=== PATIENT | female | born 1955 | race Caucasian/White ===

== ENCOUNTER → 2017-07-15 | Outpatient (CLI) | payer BC ==
[~2017-07-15] MED LIST: BENADRYL; CETI10CA PO; CITA40TA12 PO; IBUP200C8 PO
== END | disposition home or self-care (01) ==
LOC: STAR 13:21 → MERGE 13:30
PROVIDERS: ATTEND Surgery
DX: Z01.818 Encounter for other preprocedural examination (principal); R94.31 Abnormal electrocardiogram [ECG] [EKG]
CPT/HCPCS: 93005

== ENCOUNTER 2017-07-24 06:59 | Day surgery (SDC) | payer BC ==
[~2017-07-24] VITALS: Ht 157.5 cm; Wt 99.4 kg
[2017-07-24] MEDS ORDERED: INDOCYANINE GREEN 25 MG VIAL ONE ×2 (07:13→07:14)
[2017-07-24] MEDS ORDERED: EPINEPHRINE 1 MG/ML, 1ML ONE (07:13)
[2017-07-24] MEDS ORDERED: BUPIVACAINE/PF 0.5% ONE (07:13)
[2017-07-24] MEDS ORDERED: SUGAMMADEX 200 MG/2 ML IVPush ONE (07:20)
[2017-07-24 07:48] VITALS: BP 121/79
[2017-07-24 07:51] VITALS: BP 121/79
[2017-07-24] MEDS ORDERED: LACTATED RINGERS 1,000 ML IV SCH (07:56)
[2017-07-24] MEDS ORDERED: LIDOCAINE-MPF 1%, 2ML INFIL ONE (08:00)
[2017-07-24] MEDS ORDERED: LIDOCAINE-MPF 1%, 2ML ONE (08:02)
[2017-07-24] MEDS ORDERED: INDOCYANINE GREEN 25 MG VIAL IV ONE (08:30)
[2017-07-24] MEDS ORDERED: ONDANSETRON 2MG/ML, 2ML ONE ×2 (08:40→11:36)
[2017-07-24] MEDS ORDERED: PROPOFOL 10 MG/ML, 20ML ONE ×2 (08:40)
[2017-07-24] MEDS ORDERED: SUCCINYLCHOLINE 20 MG/ML, 10ML ONE (08:40)
[2017-07-24] MEDS ORDERED: CEFAZOLIN 1,000 MG ONE (08:40)
[2017-07-24] MEDS ORDERED: DEXAMETHASONE 4 MG/ML, 1ML ONE ×2 (08:40)
[2017-07-24] MEDS ORDERED: NEOSTIGMINE 1 MG/ML, 10ML ONE (08:40)
[2017-07-24] MEDS ORDERED: GLYCOPYRROLATE 0.2MG/1ML, 5ML ONE (08:40)
[2017-07-24] MEDS ORDERED: MIDAZOLAM 1 MG/ML, 2ML ONE ×2 (08:46→10:33)
[2017-07-24] MEDS ORDERED: FENTANYL PF 100 MCG/2ML ONE ×2 (08:47→10:10)
[2017-07-24] MEDS ORDERED: MEPERIDINE/PF 25MG/0.5ML IVPush PRN (10:00)
[2017-07-24] MEDS ORDERED: MIDAZOLAM 1 MG/ML, 2ML IV PRN (10:00)
[2017-07-24] MEDS ORDERED: HYDROcodone/APAP 7.5-325MG/15ML UDC PO PRN (10:00)
[2017-07-24] MEDS ORDERED: KETOROLAC 30 MG/1 ML IV PRN ×2 (10:00)
[2017-07-24] MEDS ORDERED: HYDROmorphone 1 MG/ML, 1ML IV PRN (10:00)
[2017-07-24] MEDS ORDERED: OXYcodone 5 MG/5 ML ORAL.SOL UDC PO PRN (10:00)
[2017-07-24] MEDS ORDERED: OXYcodone 5 MG/5 ML ORAL.SOL UDC ONE (10:33)
[2017-07-24] MEDS ORDERED: morphine SULFATE 10 MG/ML, 1ML ONE (10:33)
[2017-07-24] MEDS ORDERED: ONDANSETRON ODT 8 MG ONE (10:34)
[2017-07-24] MEDS: morphine SULFATE 10 MG/ML, 1ML IV PRN ×2 (10:36→10:59)
[2017-07-24] MEDS ORDERED: KETOROLAC 30 MG/1 ML ONE (10:42)
[2017-07-24] MEDS: PROMETHAZINE 12.5 MG SUPP PR PRN ×2 (10:43→11:19)
[2017-07-24] MEDS ORDERED: PROMETHAZINE 25 MG/ML, 1ML ONE (10:49)
[2017-07-24] MEDS ORDERED: ONDANSETRON ODT 8 MG PO ONE (11:00)
[2017-07-24] MEDS ORDERED: DIPHENHYDRAMINE 50 MG/ML, 1ML ONE (11:31)
[2017-07-24] MEDS ORDERED: EPHEDRINE 50 MG/ML, 1ML ONE (11:53)
[2017-07-24] MEDS ORDERED: EPHEDRINE 50 MG/ML, 1ML IM ONE (12:00)
[2017-07-24] MEDS ORDERED: DIPHENHYDRAMINE 50 MG/ML, 1ML IVPush ONE (12:00)
[2017-07-24] MEDS ORDERED: ONDANSETRON 2MG/ML, 2ML IVPush ONE (12:00)
[2017-07-24] MEDS ORDERED: hydrOXYzine 25 MG/ML IM ONE (12:00)
== END 2017-07-24 15:50 ==
LOC: OUT 06:59 → MERGE 09:00 → OUT 15:50
PROVIDERS: ATTEND Surgery
DX: K81.1 Chronic cholecystitis (principal); K82.4 Cholesterolosis of gallbladder; R79.89 Other specified abnormal findings of blood chemistry; Z98.890 Other specified postprocedural states; Z72.89 Other problems related to lifestyle; Z87.891 Personal history of nicotine dependence
CPT/HCPCS: 47562; 88304; 88307; 88313; J0171; J0330; J0690; J1100; J1200; J1885; J2250; J2270; J2405; J2704; J3010; J3410; J3490; J7120; Q0162; S2900; J2710

== ENCOUNTER 2018-04-18 16:15 | Observation (INO) | payer BC, OTHER ==
[~2018-04-18] VITALS: Ht 157.5 cm; Wt 79.6 kg
[2018-04-18] MEDS ORDERED: NAPR220T77 PO (16:32)
[2018-04-18] MEDS ORDERED: ASPI-496 PO (16:34)
[2018-04-18] MEDS ORDERED: XANAX (16:34)
[2018-04-18 17:00] LABS: BASOPHILS # (AUTO) 0.05 x10^3/uL (0-0.1); BASOPHILS % (AUTO) 1 % (0-1); EOSINOPHILS # (AUTO) 0.18 x10^3/uL (0-0.4); EOSINOPHILS % (AUTO) 2 % (1-7); LYMPHOCYTES # (AUTO) 1.86 x10^3/uL (1-3.4); LYMPHOCYTES % (AUTO) 24 % (22-44); MD NO; MEAN CORPUSCULAR HEMOGLOBIN 30.1 pg (27.0-34.8); MEAN CORPUSCULAR HGB CONC 34.4 g/dL (32.4-35.8); MEAN CORPUSCULAR VOLUME 87.6 fL (80-100); MEAN PLATELET VOLUME 8.9 fL (7.4-10.4); MONOCYTES % (AUTO) 7 % (2-9); NEUTROPHILS # (AUTO) 5.04 x10^3/uL (1.8-6.8); NEUTROPHILS % (AUTO) 66 % (42-75); PLATELET COUNT 261 x10^3/uL (130-400); RED BLOOD COUNT 5.13 x10^6/uL (3.82-5.3); RED CELL DISTRIBUTION WIDTH 14.9 % (9.6-15.2)
[2018-04-18] MEDS ORDERED: SODIUM CHLORIDE FLUSH 10ML SYR IVF ONE (17:00)
[2018-04-18 17:10] LABS: INTERNATIONAL NORMALIZED RATIO 0.92 (0.93-1.1); PROTHROMBIN TIME 9.8 Seconds (9.6-11.5)
[2018-04-18 17:11] LABS: ALBUMIN 4.1 g/dL (3.4-5.0); ANION GAP 8 mmol/L (5-15); CALCIUM 8.4 mg/dL (8.5-10.1); CHLORIDE 107 mmol/L (98-107)
[2018-04-18 17:16] LABS: ALANINE AMINOTRANSFERASE 31 U/L (12-78); ALKALINE PHOSPHATASE 80 U/L (45-117); BILIRUBIN,TOTAL 0.4 mg/dL (0.2-1.0); CREATININE 0.92 mg/dL (0.55-1.02); TOTAL PROTEIN 7.5 g/dL (6.4-8.2); TROPONIN I < 0.015 ng/mL (0.000-0.045)
[2018-04-18] MEDS ORDERED: DIPH25CA61 PO (17:55)
[2018-04-18] MEDS ORDERED: ALPR0.25 PO (17:55)
[2018-04-18 20:08] VITALS: BP 117/84
[2018-04-18] MEDS ORDERED: BISACODYL 10 MG SUPP PR PRN (21:00)
[2018-04-18] MEDS ORDERED: ACETAMINOPHEN 325 MG TABLET PO PRN (21:00)
[2018-04-18] MEDS ORDERED: ONDANSETRON ODT 4 MG PO PRN (21:00)
[2018-04-18] MEDS ORDERED: morphine SULFATE 10 MG/ML, 1ML IVPush PRN (21:00)
[2018-04-18] MEDS ORDERED: POLYETHYLENE GLYCOL 17 GM PACKET PO PRN (21:00)
[2018-04-18] MEDS ORDERED: hydrALAzine 20 MG/ML, 1ML IVPush PRN (21:00)
[2018-04-18] MEDS ORDERED: LABETALOL 5MG/ML, 20ML IVPush PRN (21:00)
[2018-04-18] MEDS ORDERED: GABAPENTIN 300 MG CAPSULE PO PRN (21:00)
[2018-04-18] MEDS ORDERED: ONDANSETRON 2MG/ML, 2ML IVPush PRN (21:00)
[2018-04-18] MEDS ORDERED: PROMETHAZINE 25 MG/ML, 1ML IM PRN (21:00)
[2018-04-18] MEDS ORDERED: DIPHENHYDRAMINE 25 MG CAPSULE PO PRN (21:00)
[2018-04-18] MEDS ORDERED: NITROGLYCERIN 0.4 MG BOTTLE (25 TABS) SL PRN (21:00)
[2018-04-18] MEDS ORDERED: OXYcodone IR 5MG TABLET PO PRN (21:00)
[2018-04-18] MEDS ORDERED: DOCUSATE 100 MG CAPSULE PO PRN (21:00)
[2018-04-18 21:19] LABS: FREE T4 (FREE THYROXINE) 0.8 ng/dL (0.76-1.46); HEMOGLOBIN A1C 6.1 % (4.2-6.3); THYROID STIMULATING HORMONE 7.13 mIU/L (0.358-3.740)
[2018-04-18] MEDS: HEPARIN 5,000 UNITS/ML, 1ML SQ SCH ×2 (21:52→21:59)
[2018-04-18] MEDS: SODIUM CHLORIDE 0.9% 1,000 ML IV SCH (21:52)
[2018-04-18] MEDS: PANTOPROZOLE 40MG TABLET PO SCH (21:52)
[2018-04-19 00:29] LABS: TROPONIN I < 0.015 ng/mL (0.000-0.045)
[2018-04-19 01:32] VITALS: BP 107/70
[2018-04-19] MEDS: HEPARIN 5,000 UNITS/ML, 1ML SQ SCH ×3 (04:48→20:05)
[2018-04-19] MEDS: ASPIRIN 325 MG TABLET EC PO SCH (05:15)
[2018-04-19 05:17] LABS: BASOPHILS # (AUTO) 0.04 x10^3/uL (0-0.1); BASOPHILS % (AUTO) 1 % (0-1); EOSINOPHILS # (AUTO) 0.18 x10^3/uL (0-0.4); EOSINOPHILS % (AUTO) 3 % (1-7); LYMPHOCYTES # (AUTO) 2.35 x10^3/uL (1-3.4); LYMPHOCYTES % (AUTO) 36 % (22-44); MD NO; MEAN CORPUSCULAR HEMOGLOBIN 29.8 pg (27.0-34.8); MEAN CORPUSCULAR HGB CONC 33.6 g/dL (32.4-35.8); MEAN CORPUSCULAR VOLUME 88.7 fL (80-100); MEAN PLATELET VOLUME 9.3 fL (7.4-10.4); MONOCYTES # (AUTO) 0.58 x10^3/uL (0.2-0.8); MONOCYTES % (AUTO) 9 % (2-9); NEUTROPHILS # (AUTO) 3.41 x10^3/uL (1.8-6.8); NEUTROPHILS % (AUTO) 52 % (42-75); PLATELET COUNT 209 x10^3/uL (130-400); RED BLOOD COUNT 4.83 x10^6/uL (3.82-5.3); RED CELL DISTRIBUTION WIDTH 14.7 % (9.6-15.2)
[2018-04-19 05:27] LABS: CALCIUM 8.2 mg/dL (8.5-10.1); CHLORIDE 109 mmol/L (98-107)
[2018-04-19 05:29] LABS: TROPONIN I < 0.015 ng/mL (0.000-0.045)
[2018-04-19 05:32] LABS: ALANINE AMINOTRANSFERASE 25 U/L (12-78); ALBUMIN 3.5 g/dL (3.4-5.0); ALKALINE PHOSPHATASE 66 U/L (45-117); ANION GAP 4 mmol/L (5-15); BILIRUBIN,TOTAL 0.5 mg/dL (0.2-1.0); CHOL/HDL RATIO 5.6; CHOLESTEROL, TOTAL 272 mg/dL (140-239); CREATININE 0.89 mg/dL (0.55-1.02); HDL CHOL % 18 % (28-40); HDL CHOLESTEROL (DIRECT) 49 mg/dL (40-60); LDL CHOLESTEROL,CALCULATED 184 mg/dL (54-169); LDL/HDL RATIO 3.8 (0.5-3.0); TOTAL PROTEIN 6.8 g/dL (6.4-8.2); TRIGLYCERIDES 193 mg/dL (50-200); VLDL CHOLESTEROL 39 mg/dL (0-25)
[2018-04-19 06:49] VITALS: BP 106/70
[2018-04-19] MEDS: CITALOPRAM 20 MG TABLET PO SCH (07:56)
[2018-04-19] MEDS: SODIUM CHLORIDE 0.9% 1,000 ML IV SCH (07:56)
[2018-04-19] MEDS: PANTOPROZOLE 40MG TABLET PO SCH (07:56)
[2018-04-19] MEDS ORDERED: REGADENOSON 0.4 MG/5 ML SYRINGE ONE (08:48)
[2018-04-19] MEDS: LEVOTHYROXINE 25 MCG TABLET PO SCH (11:02)
[2018-04-19] MEDS ORDERED: ATOR20TA37 PO (13:38)
[2018-04-19] MEDS ORDERED: LEVO25TA2 PO (13:38)
[2018-04-19 15:45] VITALS: BP 128/79
[2018-04-19 20:57] VITALS: BP 115/73
[2018-04-19] MEDS ORDERED: ATORVASTATIN 20 MG TABLET PO SCH (21:00)
[2018-04-20 01:32] VITALS: BP 127/80
[2018-04-20] MEDS: HEPARIN 5,000 UNITS/ML, 1ML SQ SCH ×2 (05:15→13:01)
[2018-04-20] MEDS: LEVOTHYROXINE 25 MCG TABLET PO SCH (05:15)
[2018-04-20] MEDS: ASPIRIN 325 MG TABLET EC PO SCH (05:15)
[2018-04-20 06:30] VITALS: BP 113/76
[2018-04-20] MEDS ORDERED: SODIUM CHLORIDE 0.9% 1,000 ML IV ONE (08:16)
[2018-04-20] MEDS: CITALOPRAM 20 MG TABLET PO SCH (08:44)
[2018-04-20] MEDS: PANTOPROZOLE 40MG TABLET PO SCH (08:44)
[2018-04-20] MEDS ORDERED: PRASUGREL 10 MG TABLET ONE (10:41)
[2018-04-20] MEDS ORDERED: FENTANYL PF 100 MCG/2ML ONE (10:41)
[2018-04-20] MEDS ORDERED: VERAPAMIL 2.5 MG/ML, 2ML ONE (10:41)
[2018-04-20] MEDS ORDERED: MIDAZOLAM 1 MG/ML, 5ML ONE (10:41)
[2018-04-20] MEDS ORDERED: BIVALIRUDIN 250 MG ONE (10:42)
[2018-04-20] MEDS ORDERED: LIDOCAINE-MPF 1%, 5ML ONE (10:42)
[2018-04-20] MEDS ORDERED: HEPARIN 1,000 UNITS/ML, 10ML ONE (10:42)
[2018-04-20 12:58] VITALS: BP 102/58
== END 2018-04-20 15:29 | disposition home or self-care (01) ==
LOC: ED 18:54 → EDIP 18:55 → INTOOBSV 18:55 → 5SO 20:03
PROVIDERS: ADMIT Internal Medicine; ATTEND Internal Medicine
DX: R07.89 Other chest pain (principal); E03.9 Hypothyroidism, unspecified; E78.5 Hyperlipidemia, unspecified; E66.9 Obesity, unspecified; E78.00 Pure hypercholesterolemia, unspecified; F12.90 Cannabis use, unspecified, uncomplicated; K21.9 Gastro-esophageal reflux disease without esophagitis; K76.0 Fatty (change of) liver, not elsewhere classified; M19.90 Unspecified osteoarthritis, unspecified site; F41.8 Other specified anxiety disorders; Z87.891 Personal history of nicotine dependence
CPT/HCPCS: 36415; 71045; 78452; 80053; 80061; 83036; 83735; 83880; 84439; 84443; 84484; 85025; 85610; 93005; 93017; 93458; 96372; 99156; 99284; A9502; C1769; C1894; C9898; G0378; J1644; J2250; J2785; J3010; J7030; Q0162; Q9967; J0583

== ENCOUNTER → 2018-08-18 | Outpatient (CLI) | payer OTHER ==
[~2018-08-18] MED LIST changes: +ALPR0.25 PO; +ASPI-496 PO; +ATOR20TA37 PO; +DIPH25CA61 PO; +LEVO25TA2 PO; +LEVO25TA4 PO; +NAPR220T77 PO; +XANAX; +[UNRECOGNIZED DRUG - OTHER] PO
[2018-08-18 09:52] LABS: BASOPHILS # (AUTO) 0.03 x10^3/uL (0-0.1); BASOPHILS % (AUTO) 1 % (0-1); EOSINOPHILS # (AUTO) 0.17 x10^3/uL (0-0.4); EOSINOPHILS % (AUTO) 3 % (1-7); LYMPHOCYTES % (AUTO) 30 % (22-44); MD NO; MEAN CORPUSCULAR HEMOGLOBIN 29.3 pg (27.0-34.8); MEAN CORPUSCULAR HGB CONC 32.8 g/dL (32.4-35.8); MEAN CORPUSCULAR VOLUME 89.4 fL (80-100); MEAN PLATELET VOLUME 8.4 fL (7.4-10.4); MONOCYTES # (AUTO) 0.52 x10^3/uL (0.2-0.8); MONOCYTES % (AUTO) 9 % (2-9); NEUTROPHILS # (AUTO) 3.47 x10^3/uL (1.8-6.8); NEUTROPHILS % (AUTO) 58 % (42-75); PLATELET COUNT 295 x10^3/uL (130-400); RED BLOOD COUNT 4.82 x10^6/uL (3.82-5.3); RED CELL DISTRIBUTION WIDTH 14.3 % (9.6-15.2)
[2018-08-18 10:00] LABS: ALANINE AMINOTRANSFERASE 29 U/L (12-78); ALBUMIN 3.6 g/dL (3.4-5.0); ANION GAP 3 mmol/L (5-15); CALCIUM 8.1 mg/dL (8.5-10.1); CHLORIDE 113 mmol/L (98-107); CREATININE 0.72 mg/dL (0.55-1.02)
[2018-08-18 10:03] LABS: ALKALINE PHOSPHATASE 79 U/L (45-117); BILIRUBIN,TOTAL 0.4 mg/dL (0.2-1.0); TOTAL PROTEIN 6.8 g/dL (6.4-8.2)
== END | disposition home or self-care (01) ==
LOC: STAR 08:41
PROVIDERS: ATTEND Specialist
DX: Z01.818 Encounter for other preprocedural examination (principal); N92.0 Excessive and frequent menstruation with regular cycle; R94.31 Abnormal electrocardiogram [ECG] [EKG]
CPT/HCPCS: 36415; 80053; 85025; 93005

== ENCOUNTER → 2018-08-19 | Outpatient (CLI) | payer OTHER ==
[~2018-08-19] MED LIST changes: +OMNIPAQUE 350 MG/ML, 100ML BOTTLE ONE
== END | disposition home or self-care (01) ==
LOC: RAD 12:46
PROVIDERS: ATTEND Specialist
DX: N28.1 Cyst of kidney, acquired (principal); K76.9 Liver disease, unspecified; J84.10 Pulmonary fibrosis, unspecified; R91.8 Other nonspecific abnormal finding of lung field; M51.37 Other intervertebral disc degeneration, lumbosacral region; Z85.42 Personal history of malignant neoplasm of other parts of uterus
CPT/HCPCS: 71260; 74177; Q9967

== ENCOUNTER 2018-08-24 10:49 | Inpatient (IN) | payer OTHER ==
[~2018-08-24] VITALS: Ht 157.5 cm; Wt 88.1 kg
[~2018-08-24 10:49] MED LIST changes: +BUPIVACAINE/PF 0.25% ONE; +INDOCYANINE GREEN 25 MG VIAL ONE; -OMNIPAQUE 350 MG/ML, 100ML BOTTLE ONE
[2018-08-24] MEDS ORDERED: DIAZEPAM 5 MG TABLET PO ONE ×2 (11:00→11:30)
[2018-08-24] MEDS ORDERED: FENTANYL PF 250 MCG/5ML ONE ×3 (11:11→15:13)
[2018-08-24] MEDS ORDERED: LACTATED RINGERS 1,000 ML IV SCH (11:25)
[2018-08-24] MEDS ORDERED: CEFAZOLIN 1,000 MG ONE ×2 (11:29→13:56)
[2018-08-24] MEDS ORDERED: PROPOFOL 10 MG/ML, 20ML ONE ×2 (11:29→13:56)
[2018-08-24] MEDS ORDERED: NEOSTIGMINE 1 MG/ML, 10ML ONE ×2 (11:29→13:56)
[2018-08-24] MEDS ORDERED: SUCCINYLCHOLINE 20 MG/ML, 10ML ONE ×2 (11:29→13:56)
[2018-08-24] MEDS ORDERED: DEXAMETHASONE 4 MG/ML, 1ML ONE ×2 (11:29→13:56)
[2018-08-24] MEDS ORDERED: GLYCOPYRROLATE 0.2MG/1ML, 5ML ONE ×2 (11:29→13:56)
[2018-08-24] MEDS ORDERED: ROCURONIUM 10MG/ML,5ML ONE ×2 (11:29→13:56)
[2018-08-24] MEDS ORDERED: ONDANSETRON 2MG/ML, 2ML ONE ×2 (11:29→13:56)
[2018-08-24] MEDS ORDERED: MIDAZOLAM 1 MG/ML, 2ML ONE (12:24)
[2018-08-24] MEDS ORDERED: ONDANSETRON 2MG/ML, 2ML IV PRN ×2 (13:30→17:30)
[2018-08-24] MEDS ORDERED: PROMETHAZINE 25 MG/ML, 1ML IV PRN ×2 (13:30→17:30)
[2018-08-24] MEDS ORDERED: FENTANYL PF 100 MCG/2ML IV PRN ×2 (13:30→17:30)
[2018-08-24] MEDS ORDERED: DIAZEPAM 5 MG/ML, 2ML IVPush PRN (13:30)
[2018-08-24] MEDS ORDERED: OXYcodone 5 MG/5 ML ORAL.SOL UDC PO PRN ×2 (13:30→17:30)
[2018-08-24] MEDS ORDERED: LORazepam 2 MG/ML, 1ML IVPush PRN ×2 (13:30→17:30)
[2018-08-24] MEDS ORDERED: PROMETHAZINE 12.5 MG SUPP PR PRN (13:30)
[2018-08-24] MEDS ORDERED: ONDANSETRON ODT 8 MG PO PRN ×2 (13:30→17:30)
[2018-08-24] MEDS ORDERED: FENTANYL PF 100 MCG/2ML ONE ×2 (15:19→17:13)
[2018-08-24] MEDS ORDERED: SUGAMMADEX 200 MG/2 ML IVPush ONE (16:29)
[2018-08-24] MEDS ORDERED: ESMOLOL 100 MG/10 ML ONE (16:55)
[2018-08-24] MEDS ORDERED: HYDROmorphone 2 MG/ML, 1ML ONE (17:13)
[2018-08-24] MEDS ORDERED: LORazepam 2 MG/ML, 1ML ONE (17:13)
[2018-08-24] MEDS: HYDROmorphone 2 MG/ML, 1ML IVPush PRN ×3 (17:19→18:19)
[2018-08-24] MEDS ORDERED: MEPERIDINE/PF 25MG/0.5ML IVPush PRN (17:30)
[2018-08-24] MEDS ORDERED: hydrALAzine 20 MG/ML, 1ML IV PRN ×2 (17:30)
[2018-08-24] MEDS ORDERED: LABETALOL 5MG/ML, 20ML IV PRN ×2 (17:30)
[2018-08-24] MEDS ORDERED: HYDROmorphone 2 MG/ML, 1ML IVPush PRN (17:30)
[2018-08-24] MEDS ORDERED: METOPROLOL 1 MG/ML, 5ML ONE (17:31)
[2018-08-24] MEDS: METOPROLOL 1 MG/ML, 5ML IV PRN ×4 (17:36→18:18)
[2018-08-24] MEDS ORDERED: OXYcodone 5 MG/5 ML ORAL.SOL UDC ONE (17:53)
[2018-08-24 19:10] VITALS: BP 120/79
[2018-08-24 23:11] VITALS: BP 119/81
[2018-08-25 03:01] VITALS: BP 132/83
[2018-08-25] MEDS: ONDANSETRON ODT 4 MG PO PRN ×2 (03:11→09:18)
[2018-08-25] MEDS: OXYcodone/APAP 7.5/325MG TABLET PO PRN ×2 (03:47→10:07)
[2018-08-25 08:19] VITALS: BP 106/71
[2018-08-25] MEDS ORDERED: ONDA4TAB7 PO (09:59)
[2018-08-25] MEDS ORDERED: OXYC-306 PO (09:59)
== END 2018-08-25 10:25 | disposition home or self-care (01) | DRG 741 ==
LOC: ORIP 10:49 → EDSTATUS 13:00 → 4NOR 18:49 → DCLOUNGE 08-25 10:20
PROVIDERS: ADMIT Specialist; ATTEND Specialist
PROC: 0DBU4ZZ Excision of Omentum, Percutaneous Endoscopic Approach (ICD-10-PCS; 2018-08-24)
PROC: 07BC4ZX Excision of Pelvis Lymphatic, Percutaneous Endoscopic Approach, Diagnostic (ICD-10-PCS; 2018-08-24)
PROC: 0UT74ZZ Resection of Bilateral Fallopian Tubes, Percutaneous Endoscopic Approach (ICD-10-PCS; 2018-08-24)
PROC: 0UT24ZZ Resection of Bilateral Ovaries, Percutaneous Endoscopic Approach (ICD-10-PCS; 2018-08-24)
PROC: 8E0W4CZ Robotic Assisted Procedure of Trunk Region, Percutaneous Endoscopic Approach (ICD-10-PCS; 2018-08-24)
PROC: 0DBW4ZX Excision of Peritoneum, Percutaneous Endoscopic Approach, Diagnostic (ICD-10-PCS; 2018-08-24)
PROC: 0UT94ZZ Resection of Uterus, Percutaneous Endoscopic Approach (ICD-10-PCS; principal; 2018-08-24 12:00)
DX: C54.1 Malignant neoplasm of endometrium (principal); E78.00 Pure hypercholesterolemia, unspecified; E66.09 Other obesity due to excess calories; F41.9 Anxiety disorder, unspecified; E03.9 Hypothyroidism, unspecified; Z90.49 Acquired absence of other specified parts of digestive tract; Z88.8 Allergy status to other drugs, medicaments and biological substances; Z91.012 Allergy to eggs; Z68.35 Body mass index [BMI] 35.0-35.9, adult; Z87.891 Personal history of nicotine dependence
CPT/HCPCS: 36415; 86850; 86900; 88112; 88305; 88307; 88333; 88341; 88342; 88360; G0378; J0690; J1100; J1170; J2250; J2405; J2704; J2710; J3010; J3490; Q0162; J0330; J2060